=== PATIENT | female | born 1965 | race Caucasian/White ===

== ENCOUNTER 2024-02-20 08:24 | Day surgery (SDC) | payer MEDICAID ==
[~2024-02-20] VITALS: Ht 147.3 cm; Wt 65.8 kg
[2024-02-20] MEDS ORDERED: fentaNYL CITRATE/PF 100 MCG/2 ML AMP ONE (10:52)
[2024-02-20] MEDS ORDERED: ONDANSETRON HCL 4 MG/2 ML VIAL ONE ×2 (10:52→14:37)
[2024-02-20] MEDS ORDERED: OXYMETAZOLINE HCL 0.05% NASAL SPRAY NS ONE (10:52)
[2024-02-20] MEDS ORDERED: LIDOCAINE/EPI 1% 1:100000 20 ML VIAL ONE (10:52)
[2024-02-20] MEDS ORDERED: DEXAMETHASONE SOD PHOSPHATE 4 MG/ML VIAL ONE (10:52)
[2024-02-20] MEDS ORDERED: DESFLURANE 15 MIN GAS INH ONE (10:52)
[2024-02-20] MEDS ORDERED: SUGAMMADEX SODIUM 200 MG/2 ML VIAL IV ONE (10:52)
[2024-02-20] MEDS ORDERED: NS IRRIG SOLN 1000 ML IR ONE (10:52)
[2024-02-20] MEDS ORDERED: NS 1000 ML IV.SOLN IV ONE (10:52)
[2024-02-20] MEDS ORDERED: ROCURONIUM BROMIDE 10 MG/ML (ZEMURON) ONE (10:52)
[2024-02-20] MEDS ORDERED: MIDAZOLAM HCL 5 MG/5 ML VIAL ONE (10:52)
[2024-02-20] MEDS ORDERED: WATER FOR IRRIGATION,STERILE 1,000 ML IRRIG.SOLN IR ONE (10:52)
[2024-02-20] MEDS ORDERED: PROPOFOL 200MG/ 20ML VIAL (DIPRIVAN) IV ONE (10:52)
[2024-02-20] MEDS ORDERED: ACETAMINOPHEN I.V. 1000 MG 100 ML IV ONE (11:06)
[2024-02-20] MEDS ORDERED: METOCLOPRAMIDE HCL 10 MG/2 ML VIAL IVP PRN (11:30)
[2024-02-20] MEDS ORDERED: MEPERIDINE HCL/PF 25 MG/ML DISP.SYRIN IVP PRN (11:30)
[2024-02-20] MEDS ORDERED: hydrALAZINE HCL 20 MG/ML VIAL IVP PRN (11:30)
[2024-02-20] MEDS ORDERED: LR 1,000 ML IV SCH (11:30)
[2024-02-20] MEDS ORDERED: HYDROmorphone 1 MG/ML INJ. CARTRIDGE IVP PRN (11:30)
[2024-02-20] MEDS ORDERED: LABETALOL 100 MG/ 20ML VIAL IVP PRN (11:30)
[2024-02-20 13:13] VITALS: O2SAT 100
[2024-02-20] MEDS ORDERED: HYDROmorphone 1 MG/ML INJ. CARTRIDGE ONE (14:07)
[2024-02-20] MEDS: HYDROmorphone 1 MG/ML INJ. CARTRIDGE IVP PRN (16:30)
[2024-02-20] MEDS: ONDANSETRON HCL 4 MG/2 ML VIAL IVP PRN (16:31)
[2024-02-20 17:17] VITALS: BP_SYST 135; PULSE 68; RESP 17
== END 2024-02-20 17:01 | disposition home or self-care (01) ==
LOC: SDS 08:24 → SMU 08:24 → SDS 17:01
PROVIDERS: ATTEND Otolaryngology
DX: D38.5 Neoplasm of uncertain behavior of other respiratory organs (principal); J34.89 Other specified disorders of nose and nasal sinuses; J34.2 Deviated nasal septum; J32.9 Chronic sinusitis, unspecified; E66.9 Obesity, unspecified; E78.5 Hyperlipidemia, unspecified; Z68.30 Body mass index [BMI] 30.0-30.9, adult; Z90.49 Acquired absence of other specified parts of digestive tract; Z79.899 Other long term (current) drug therapy
CPT/HCPCS: 30465; 30140; 31240; 31256; 31253; 88304; 88305; 88311; J3490; J1100; J2250; J2405; J2704; J3010; J1171; J7120; J7030; C1726; J0131